=== PATIENT | male | born 1990 | race Caucasian/White ===

== ENCOUNTER 2025-01-18 17:00 | Emergency (ER) | payer OTHER, SELFPAY ==
[2025-01-18 17:05] VITALS: BP 161/97; PULSE 86; TEMP 36.9; O2SAT 96; BMI 36.2
[2025-01-18 19:23] VITALS: BP 149/90; PULSE 78; TEMP 36.9; O2SAT 98
--- NOTE | 2025-01-18 19:48 | ED.URI1 ---
HPI - URI/Sore Throat General Chief Complaint: Upper Respiratory Infection Stated Complaint: SORE THROAT, SOB Time Seen by Provider: 01/18/25 19:20 Source: patient Limitations: no limitations History of Present Illness HPI Narrative: 34-year-old male presents to the emergency department with complaint of not feeling well for about a week. States symptoms began with a sore throat, but now is worried about sinus infection and pneumonia. Today, woke up with some difficulty in expanding his chest and clearing congestion in it. He has left-sided sinus discomfort, green/yellow nasal discharge, pleuritic chest discomfort. Unknown if he has had a fever. Denies any history of cigarette smoking. Quality:?As above Severity:?Moderate Timing:?As above, constant Context: Normal setting and activity? Modifying factors:?None Associated symptoms: As above Related Data Previous Rx's ?Medication ?Instructions ?Recorded albuterol sulfate 90 mcg/actuation 1 inh inhalation Q6H PRN shortness 01/18/25 aerosol inhaler of breath or wheezing #8.5 grams amoxicillin 875 mg-potassium 1 tab PO BID 10 days #20 tabs 01/18/25 clavulanate 125 mg tablet guaifenesin 1,200 mg tablet, 1,200 mg PO BID PRN congestion #14 01/18/25 extended release 12 hr (Mucinex) tabs prednisone 50 mg tablet 50 mg PO DAILY 5 days #5 tabs 01/18/25 Allergies Allergy/AdvReac Type Severity Reaction Status Date / Time No Known Drug Allergies Allergy Verified 01/18/25 17:10 Review of Systems ROS Narrative Constitutional: + fatigue. Denies fever, chills HENT: + congestion, rhinorrhea, sore throat, sinus pressure, hoarse. Denies congestion, ear pain, diff swallowing Eyes: Denies discharge, eye redness Respiratory: + cough, shortness of breath Cardiovascular: + pleuritic chest pain. Denies palpitations PFSH PFSH Social History Little interest or pleasure in doing things: not at all Feeling down, depressed, or hopeless: not at all Exam Narrative Exam Narrative: Vital signs noted Nurses notes reviewed CONST:? Nontoxic, well appearing, well nourished, in no distress.? HENT: normocephalic, atraumatic.? Normal hearing.? + hoarse voice. No hot potato voice. + left frontal and maxillary sinus tenderness. + nasal congestion. Normal appearing ext ears, canals, TM's.? No nasal discharge.? + streaking to the posterior oropharynx consistent with post nasal drip. Moist mucous membranes, edema, exudate.? No trismus, maintaining own secretions. EYES: No injection, discharge NECK: supple, no lymphadenopathy CV: normal rate, regular rhythm, no murmur RESP: normal effort, speaking in complete sentences. Lung sounds clear and equal bilat.? No wheezes, rales, rhonchi? NEURO: A&Ox3, steady gait, normal station SKIN: intact, warm, dry, no pallor PSYCHIATRIC: normal mood, affect Constitutional Vital Signs, click to edit/add: Last Vital Signs Temp 98.9 F 01/18/25 20:49 Pulse 70 01/18/25 20:49 Resp 17 01/18/25 20:49 BP 152/89 H 01/18/25 20:49 Pulse Ox 97 01/18/25 20:49 O2 Del Method Room Air 01/18/25 17:05 Course Reevaluation(s) Reevaluation #1: Discussed with patient and mother results, plan, and disposition. Patient and mother are agreeable. Time: 20:18 Vital Signs Vital signs: Vital Signs Temperature 98.4 F 01/18/25 17:05 Pulse Rate 86 01/18/25 17:05 Respiratory Rate 18 01/18/25 17:05 Blood Pressure 161/97 H 01/18/25 17:05 Pulse Oximetry 96 01/18/25 17:05 Oxygen Delivery Method Room Air 01/18/25 17:05 Temperature 98.9 F 01/18/25 20:49 Pulse Rate 70 01/18/25 20:49 Respiratory Rate 17 01/18/25 20:49 Blood Pressure 152/89 H 01/18/25 20:49 Pulse Oximetry 97 01/18/25 20:49 Oxygen Delivery Method Room Air 01/18/25 17:05 MDM - URI/Sore Throat MDM Narrative Medical decision making narrative: This is a pleasant 34-year-old male who presents to the emergency department for evaluation of sinus pain, green/yellow nasal drainage, sore throat, cough, congestion On arrival, afebrile, vital signs are stable Exam, nontoxic, well-appearing patient in no distress. Hoarse voice, left frontal and maxillary sinus tender. +nasal congesiton. No other remarkable findings on HEENT exam. Heart regular rate and rhythm. Lung sounds clear and equal bilaterally. Chest x-ray imaging, per radiologist reveals no acute findings reveals no acute findings Favor sinusitis, bronchitis Pneumonia less likely based on imaging. He is not hypoxic. Lung sounds clear and equal bilaterally. History and Record Review Discussion with independent historian: Mother Management Independent interpretation: Chest x-ray: No infiltrate, edema, or other acute abnormality noted Disposition ? The patient was discharged. Prescriptions sent to pharmacy: Augmentin, Mucinex, albuterol inhaler, and prednisone Plan: Patient will be discharged to home.? Condition at time of disposition: stable.? Advised to follow up with primary provider. Advised to return for any worsening and/or development of new, concerning signs or symptoms PLEASE NOTE: Portions of the medical record may have been produced using electronic underwriting service representative and may contain errors with respect to translation of words which may not have been identified prior to finalization of the chart. Medical Records Attestation: I reviewed the patient's medical records. Imaging Data Chest x-ray: Attestation: I personally reviewed and interpreted this imaging study as follows: My impression: No filtrate, edema or other acute abnormality Discharge Plan Discharge Stand Alone Forms: Work/School Release Chief Complaint: Upper Respiratory Infection Clinical Impression: Bronchitis Sinusitis Qualifiers: Sinusitis location: other Chronicity: acute Recurrence: non-recurrent Qualified Code(s): J01.80 - Other acute sinusitis Patient Disposition: Home, Self-Care Time of Disposition Decision: 20:19 Condition: Good Mode of Transportation: Private Vehicle Prescriptions / Home Meds: New amoxicillin-pot clavulanate 875-125 mg tablet 1 tab PO BID 10 Days Qty: 20 0RF albuterol sulfate 90 mcg/actuation HFA aerosol inhaler 1 inh inhalation Q6H PRN (Reason: shortness of breath or wheezing) Qty: 8.5 0RF guaifenesin [Mucinex] 1,200 mg tablet extended release 12hr 1,200 mg PO BID PRN (Reason: congestion) Qty: 14 0RF prednisone 50 mg tablet 50 mg PO DAILY 5 Days Qty: 5 0RF Print Language: Libyan Instructions: Sinusitis (ED), Acute Bronchitis (ED) Referrals: AFSHAN SLAUGHTER [Primary Care Provider] - 1 week Discharge Date/Time: 01/18/25 20:56
[2025-01-18 20:49] VITALS: BP 152/89; PULSE 70; TEMP 37.2; O2SAT 97
[2025-01-18] MEDS: AMOXICILLIN/POT CLAV 875-125 MG TABLET 1 TAB PO (20:50)
--- NOTE | 2025-01-18 20:55 | PC.NURSE ---
i gave this patient verbal and paper discharge order along with 4 e-scripts and 1 work note, this patient voices yes too understanding these. at time of discharge this patient vices no concerns and shows no signs of distress
== END 2025-01-18 20:56 | disposition home or self-care (01) ==
PROVIDERS: Emergency Provider Emergency Medicine; PCP Internal Medicine
DX: J40 Bronchitis, not specified as acute or chronic (principal)
CPT/HCPCS: 71046; 99283